=== PATIENT | male | born 1955 | race Caucasian/White ===

== ENCOUNTER 2024-07-31 13:47 | Outpatient (CLI) | payer MEDICARE, MEDICAID, SELFPAY ==
[2024-07-31 14:21] LABS: Basophils % 0.5 % (0.1-2.0); Eosinophils # 0.3 K/mm3 (0.0-0.4); Eosinophils % 3.8 % (0.1-12.0); Hematocrit 33.3 % (42.0-52.0); Hemoglobin 10.3 g/dL (14.1-18.0); Lymphocytes # 1.6 K/mm3 (0.7-4.5); Mean Corpuscular HGB Conc 30.9 g/dL (31.8-35.4); Mean Corpuscular Hemoglobin 31.1 pg (27.0-31.2); Mean Corpuscular Volume 100.4 fl (80-94); Mean Platelet Volume 8.2 fl (7.4-10.4); Monocytes # 0.5 K/mm3 (0.1-1.0); Monocytes % 5.6 % (1.7-9.3); Platelet Count 204 K/mm3 (142-424); Red Blood Count 3.31 M/mm3 (4.60-6.20); Red Cell Distribution Width 13.4 % (11.5-17.5); White Blood Count 8.4 K/mm3 (4.8-10.8)
[2024-07-31 14:38] LABS: Chloride 113 mmol/L (98-107); Potassium 4.7 mmoL/L (3.5-5.1); Sodium 142 mmol/L (136-145)
[2024-07-31 14:41] LABS: Alanine Aminotransferase 14 U/L (12-78); Alkaline Phosphatase 84 U/L (38-126); Anion Gap 7.7 mEq/L (5-15); Aspartate Amino Transferase 13 U/L (17-59); Bilirubin,Total 0.5 mg/dl (0.2-1.3); Blood Urea Nitrogen 27 mg/dl (9-20); Carbon Dioxide 26 mmol/L (22.0-30.0); Estimated Glomerular Filt Rate 30 ml/min (>60); GFR (African American) 36 ML/MIN (>60); Globulin 2.1 g/dL (1.3-3.2); Iron 42 ug/dL (49-181); Total Protein,Serum 4.1 g/dl (6.3-8.2)
[2024-07-31 14:42] LABS: Calcium 7.4 mg/dl (8.4-10.2); Glucose 83 mg/dl (74-100)
[2024-07-31 14:51] LABS: Total Iron Binding Capacity 118 ug/dL (261-462)
[2024-07-31 15:16] LABS: Ferritin 144 ng/ml (17.9-464)
[2024-07-31 15:17] LABS: Lactate Dehydrogenase 157 U/L (313-618)
[2024-07-31 16:25] LABS: Folate > 20.00 ng/mL
[2024-08-01 08:21] LABS: Haptoglobin 58 mg/dL (32-363)
== END 2024-07-31 23:59 | disposition home or self-care (01) ==
LOC: LAB 13:51
PROVIDERS: PCP Internal Medicine Adolescent Medicine; Visit Provider Internal Medicine Medical Oncology
DX: D64.9 Anemia, unspecified (principal)
CPT/HCPCS: 36415; 80053; 82728; 82746; 83010; 83540; 83550; 83615; 85025; 86880